=== PATIENT | male | born 1970 | race Caucasian/White ===

== ENCOUNTER 2017-11-29 13:40 | Emergency (ER) | payer SELFPAY ==
[~2017-11-29] VITALS: Ht 180.3 cm; Wt 79.4 kg
[2017-11-29 13:40] VITALS: BP_SYST 108
--- NOTE | 2017-11-29 13:40 | NUR ---
Patient triaged and placed in waiting room. VSS and patient appears in no acute distress at this time. Accompanied by SELF, awaiting available bed, and MD notified of need for MSE.
--- NOTE | 2017-11-29 17:44 | NUR ---
Pt placed in bed 5
--- NOTE | 2017-11-29 17:45 | NUR ---
Pt complains of pain to right lower leg and foot, noted swelling, redness and warm to touch. Pt states a month ago was bitten by many spiders, leg swelled up and had fevers, n/v, went away, then 2 days ago pt stepped on a ladder and pain and swelling started again. Pt denies n/v or fever at this time. Pt is able to ambulate but has a limp. No other injuries/complaints per pt or noted.
--- NOTE | 2017-11-29 17:50 | NUR ---
ER at bedside examining patient.
[2017-11-29 18:01] VITALS: BP_SYST 115
--- NOTE | 2017-11-29 18:01 | NUR ---
Patient given written and verbal discharge instructions and verbalizes understanding. ER MD discussed with patient the results and treatment provided. Patient in stable condition. ID arm band removed. Rx of keflex and tylenol given. Patient educated on pain management and to follow up with PMD. Pain Scale 4. Dr Vázquez is aware, prescription was given for home [facility] for questions provided and answered.
== END 2017-11-29 18:01 | disposition home or self-care (01) ==
LOC: SED 13:40
DX: L03.115 Cellulitis of right lower limb (principal)
CPT/HCPCS: 99283

== ENCOUNTER 2019-03-07 09:40 | Emergency (ER) | payer OTHER ==
[~2019-03-07] VITALS: Ht 180.3 cm; Wt 79.4 kg
[2019-03-07 09:40] VITALS: BP_SYST 96
[2019-03-07 11:10] VITALS: BP_SYST 102
== END 2019-03-07 11:10 | disposition home or self-care (01) ==
LOC: SED 09:40
DX: J11.1 Influenza due to unidentified influenza virus with other respiratory manifestations (principal); J45.909 Unspecified asthma, uncomplicated
CPT/HCPCS: 36415; 71045; 86710; 99284